=== PATIENT | female | born 1980 | race African-American/Black ===

== ENCOUNTER 2016-03-14 08:14 | Emergency (ER) | payer SELFPAY ==
[~2016-03-14] VITALS: Ht 170.2 cm; Wt 170.1 kg
[2016-03-14 08:17] VITALS: BP 162/108
[2016-03-14] MEDS ORDERED: GABA-586 PO (08:53)
[2016-03-14] MEDS ORDERED: METH4TAB2 PO (08:53)
[2016-03-14] MEDS ORDERED: NAPR500T8 PO (08:53)
[2016-03-14] MEDS ORDERED: CYCL10TA2 PO (08:53)
--- NOTE | 2016-03-14 08:53 | PHYS DOC ---
Past Medical History Past Medical History: Asthma Additional Past Medical Histor: obesity Past Surgical History: No Surgical History Alcohol Use: None Drug Use: None Adult General Chief Complaint Chief Complaint: GENERALIZED BODY ACHES [facility] HPI Patient is a 35 year old female with no significant medical history who presents today with left-sided generalize pain from her head to her toes that she states began 2 days ago. Patient denies any injury. She states she has intermittent tingling to her left fingers and left toes. Patient denies any headache despite her generalized pain from her head to her toes. Denies any abdominal pain nausea vomiting. She has been talking on her phone since she came to the Ed. I had to leave the room and returned later before she got off the phone. As I spoke to her she states most of her pain is on the left knee. She is morbidly obese. Review of Systems Review of Systems Constitutional: Denies fever or chills [] Eyes: Denies change in visual acuity, redness, or eye pain [] HENT: Denies nasal congestion or sore throat [] Respiratory: Denies cough or shortness of breath [] Cardiovascular: No additional information not addressed in HPI [] GI: Denies abdominal pain, nausea, vomiting, bloody stools or diarrhea [] : Denies dysuria or hematuria [] Musculoskeletal: Left sided pain Integument: Denies rash or skin lesions [] Neurologic: Denies headache, focal weakness or sensory changes [] Endocrine: Denies polyuria or polydipsia [] Allergies Allergies Allergies Coded Allergies Type Severity Reaction Last Updated Verified No Known Drug Allergies 04/24/14 No Physical Exam Physical Exam Constitutional: Well developed, well nourished, no acute distress, non-toxic appearance. [] HENT: Normocephalic, atraumatic, bilateral external ears normal, oropharynx moist, no oral exudates, nose normal. [] Eyes: PERRLA, EOMI, conjunctiva normal, no discharge. [] Neck: Normal range of motion, no tenderness, supple, no stridor. [] Cardiovascular:Heart rate regular rhythm, no murmur [] Lungs & Thorax: Bilateral breath sounds clear to auscultation [] Abdomen: Bowel sounds normal, soft, no tenderness, no masses, no pulsatile masses. [] Skin: Warm, dry, no erythema, no rash. [] Back: No tenderness, no CVA tenderness. [] Extremities: Patient is morbidly obese. No obvious muscle skeletal deformity noted. Tenderness on palpation of the left knee. Full range of motion to the left knee. Full range of motion to the upper and lower extremities. Adequate sensation to bilateral extremities. +2 pedal and radial pulses. Cap refill less than 2 seconds to bilateral upper and lower extremities. Neurologic: Alert and oriented X 3, normal motor function, normal sensory function, no focal deficits noted. [] Psychologic: Affect normal, judgement normal, mood normal. [] Current Patient Data Vital Signs Vital Signs Date Time Temp Pulse Resp B/P Pulse Ox O2 Delivery O2 Flow Rate FiO2 03/14/16 08:17 98.6 115 18 99 Room Air 98.6 EKG EKG [] Radiology/Procedures Radiology/Procedures [] Course & Med Decision Making Course & Med Decision Making Pertinent Labs and Imaging studies reviewed. (See chart for details) Patient is in the ED with left-sided pain with no known injury. Most of her pain is on the left knee. Her pain is musculoskeletal, I also suspect she could have some arthritis especially on the left knee. I send her home with gabapentin naproxen and Flexeril. Given a note for work for 2 days. Provided her doctor's list for follow-up. Dragon Disclaimer Noe Disclaimer This electronic medical record was generated, in whole or in part, using a voice recognition dictation system. Departure Departure Impression: Primary Impression: Musculoskeletal pain Disposition: HOME, SELF-CARE Condition: STABLE Referrals: NO PCP (PCP) Follow-up with a doctor from the list provided in a week Patient Instructions: Musculoskeletal Pain Additional Instructions: You were seen for muscle skeletal pain. Take the prescribed medicines as needed. Scripts Gabapentin 300 Mg [id number] Mg PO TID #30 CAP Prov:MAGDADAVIDLOGAN Araujo [employer] 03/14/16 Methylprednisolone (Medrol)4 Mg Tab.ds.pk1 Pkg PO UD #1 PKG Prov:JOSÉ MIGUELLOGAN [employer] 03/14/16 Cyclobenzaprine Hcl 10 Mg Tablet1 Tab PO TID #30 TAB Prov:LOGAN VALDEZ [employer] 03/14/16 Naproxen 500 Mg Tablet.dr1 Tab PO BID #60 TAB Ref 2 Prov:MAGDADAVIDVanLOGAN [employer]PER[employer]OR 03/14/16 MUTLOGAN SMALLWOOD [employer]PER[employer]OR Mar 14, 2016 08:53
== END 2016-03-14 09:02 | disposition home or self-care (01) ==
LOC: ER 08:14
DX: M79.1 Myalgia (principal); J45.909 Unspecified asthma, uncomplicated; E66.01 Morbid (severe) obesity due to excess calories; Z68.43 Body mass index [BMI] 50.0-59.9, adult
CPT/HCPCS: 99283

== ENCOUNTER 2021-04-18 19:24 | Emergency (ER) | payer OTHER ==
[~2021-04-18] VITALS: Ht 170.2 cm; Wt 186.4 kg
[~2021-04-18 19:24] MED LIST: CYCL10TA19 PO; GABA300C18 PO; METH4TAB2 PO; NAPR500T8 PO
[2021-04-18 19:40] VITALS: BP 131/64
[2021-04-18] MEDS ORDERED: HYDROcodone/APAP 5/325MG 1 TAB TABLET PO ONE (19:45)
--- NOTE | 2021-04-18 19:54 | PHYS DOC ---
Past Medical History Past Medical History: Asthma Additional Past Medical Histor: obesity Past Surgical History: No Surgical History Smoking Status: Never Smoker Alcohol Use: None Drug Use: None General Adult EDM: Chief Complaint: LOWER EXT PAIN HPI: HPI: Patient is a 40 year old female presents with a chief complaint of right knee pain. Patient states knee pain has been ongoing for 2 days progressively coming worse. Patient states pain is in her knee chief has associated swelling in the knee. She denies any injuries. Patient states she has had similar issues in the past with her left knee. Patient is also requesting to have her blood sugar checked. Review of Systems: Review of Systems: Constitutional: Denies fever or chills. [] Eyes: Denies change in visual acuity. [] HENT: Denies nasal congestion or sore throat. [] Respiratory: Denies cough or shortness of breath. [] Cardiovascular: Denies chest pain or edema. [] GI: Denies abdominal pain, nausea, vomiting, bloody stools or diarrhea. [] : Denies dysuria. [] Musculoskeletal: Denies back pain positive joint pain. [] Integument: Denies rash. [] Neurologic: Denies headache, focal weakness or sensory changes. [] Endocrine: Denies polyuria or polydipsia. [] Lymphatic: Denies swollen glands. [] Psychiatric: Denies depression or anxiety. [] Heart Score: C/O Chest Pain: N/A Risk Factors: Risk Factors: DM, Current or recent (<one month) smoker, HTN, HLP, family hi story of CAD, obesity. Risk Scores: Score 0 - 3: 2.5% MACE over next 6 weeks - Discharge Home Score 4 - 6: 20.3% MACE over next 6 weeks - Admit for Clinical Observation Score 7 - 10: 72.7% MACE over next 6 weeks - Early Invasive Strategies Current Medications: Current Medications Medications (Trade) Dose Ordered Sig/Hieu Start Time Stop Time Status Last Admin Dose Admin Acetaminophen/ Hydrocodone Bitart (Lortab 5/325) 1 tab 1X ONCE 04/18/21 19:45 04/18/21 19:46 UNV Allergies: Allergies: Allergies Coded Allergies Type Severity Reaction Last Updated Verified No Known Drug Allergies 04/24/14 No Physical Exam: PE: Constitutional: Well developed, well nourished, no acute distress, non-toxic appearance. [] HENT: Normocephalic, atraumatic, bilateral external ears normal, oropharynx mois t, no oral exudates, nose normal. [] Eyes: PERRLA, EOMI, conjunctiva normal, no discharge. [] Neck: Normal range of motion, no tenderness, supple, no stridor. [] Cardiovascular:Heart rate regular rhythm, no murmur [] Lungs & Thorax: Bilateral breath sounds clear to auscultation [] Abdomen: Bowel sounds normal, soft, no tenderness, no masses, no pulsatile masses. [] Skin: Warm, dry, no erythema, no rash. [] Back: No tenderness, no CVA tenderness. [] Extremities: No tenderness, no cyanosis, no clubbing, , no edema. [right knee-- decreased ROM due to pain, no deformities] Neurologic: Alert and oriented X 3, normal motor function, normal sensory function, no focal deficits noted. [] Psychologic: Affect normal, judgement normal, mood normal. [] EKG: EKG: [] Radiology/Procedures: Radiology/Procedures: [] Impression: Xray wet read knee Negative for acute process Course & Med Decision Making: Course & Med Decision Making Pertinent Labs and Imaging studies reviewed. (See chart for details) []Treated with norco. Rx norco Discussed results Suspect osteoarthritis- knee effusion Noe Disclaimer: Noe Disclaimer: This electronic medical record was generated, in whole or in part, using a voice recognition dictation system. Departure Departure Impression: Primary Impression: Knee pain, right Disposition: HOME / SELF CARE / HOMELESS Condition: STABLE Referrals: NO PCP (PCP) DHARMESH DOUGLAS Jr. DO Patient Instructions: Knee Pain Scripts Hydrocodone/Acetaminophen (Hydrocodone-Acetamin 5-325 mg) 1 Each Tablet 1 EACH PO Q4-6HRS, #14 TAB Prov: EVAN CHINO DO 04/18/21 EVAN CHINO DO Apr 18, 2021 19:54
[2021-04-18] MEDS ORDERED: HYDR-2759 PO (20:27)
--- NOTE | 2021-04-18 21:41 | RAD ---
Exam: Right knee 3 views INDICATION: Pain TECHNIQUE: Frontal, lateral and oblique views of the right knee Comparisons: None FINDINGS: Bone mineralization is normal. No acute or healed fractures. Soft tissues are unremarkable. Joint spa vijay are well-maintained. IMPRESSION: No acute osseous abnormality. Electronically signed by: Seymour Marques MD (04/18/2021 9:39 PM) MERLYN
== END 2021-04-18 21:05 | disposition home or self-care (01) ==
LOC: ER 19:24
DX: M25.561 Pain in right knee (principal); J45.909 Unspecified asthma, uncomplicated
CPT/HCPCS: 73562; 82962; 99283